=== PATIENT | male | born 2000 | race African-American/Black ===

== ENCOUNTER 2024-01-30 03:00 | Emergency (ER) | payer OTHER ==
[~2024-01-30] VITALS: Ht 185.4 cm; Wt 94.2 kg
[2024-01-30] MEDS: NS 1,000 ML IV ONE (03:19)
[2024-01-30 03:39] VITALS: TEMP 98.4
[2024-01-30] MEDS: UNRESOLVED CLARIFICATION ENTRY XX STA (03:39)
[2024-01-30 03:42] LABS: BASO % 0.3 % (0.0-1.0); EOS # 0.1 10^3/uL (0.0-0.5); EOS % 0.7 % (0.0-3.0); HEMATOCRIT 45.1 % (42.0-52.0); HEMOGLOBIN 15.2 g/dl (13.5-17.5); LYMPH # 1.6 10^3/uL (1.5-5.0); LYMPH % 21.2 % (24.0-44.0); MEAN CORPUSCULAR HEMOGLOBIN 28.8 pg (27.0-33.0); MEAN CORPUSCULAR HGB CONC 33.7 g/dl (32.0-36.5); MEAN CORPUSCULAR VOLUME 85.6 fl (80.0-96.0); MONO # 0.3 10^3/uL (0.0-0.8); MONO % 4.5 % (2.0-8.0); NEUTROPHILS # 5.5 10^3/uL (1.5-8.5); NEUTROPHILS % 72.9 % (36.0-66.0); RED BLOOD COUNT 5.27 10^6/uL (4.30-6.10); WHITE BLOOD COUNT 7.6 10^3/uL (4.0-10.0)
[2024-01-30 04:04] LABS: ETHYL ALCOHOL (ETHANOL) 0.241 % (0.000-0.010)
[2024-01-30 04:06] LABS: ALBUMIN 4.1 G/DL (3.2-5.2); ALKALINE PHOSPHATASE 107 U/L (46-116); ALT/SGPT 46 U/L (7.0-40); AST/SGOT 26 U/L (<34); BILIRUBIN,DIRECT < 0.1 MG/DL (<0.4); BILIRUBIN,TOTAL 0.2 MG/DL (0.3-1.2); BLOOD UREA NITROGEN 12 MG/DL (9-23); CALCIUM LEVEL 8.9 MG/DL (8.5-10.1); CARBON DIOXIDE LEVEL 22 MMOL/L (20-31); CHLORIDE LEVEL 111 MMOL/L (98-107); CREATININE FOR GFR 0.88 MG/DL (0.70-1.30); GLOMERULAR FILTRATION RATE > 60.0 (>60); GLUCOSE, FASTING 107 MG/DL (60-100); POTASSIUM SERUM 4.2 MMOL/L (3.5-5.1); SALICYLATE LEVEL < 3.0 MG/DL (<30); SODIUM LEVEL 144 MMOL/L (136-145); TOTAL PROTEIN 7.7 G/DL (5.7-8.2)
[2024-01-30 04:10] LABS: CPK CREATINE PHOSPHOKINASE 724 U/L (46-171)
[2024-01-30 04:15] LABS: AMPHETAMINES LEVEL URINE NEGATIVE (NEGATIVE); BARBITURATES URINE NEGATIVE (NEGATIVE); BENZODIAZEPINES URINE NEGATIVE (NEGATIVE); CANNABINOIDS URINE NEGATIVE (NEGATIVE); COCAINE METABOLITE URINE NEGATIVE (NEGATIVE); METHADONE URINE NEGATIVE (NEGATIVE); OPIATES URINE NEGATIVE (NEGATIVE); PHENCYCLIDINE URINE NEGATIVE (NEGATIVE)
[2024-01-30 06:00] VITALS: O2SAT 100
[2024-01-30] MEDS: MULTIVITAMIN -ADULT INJECTION 10 ML, THIAMINE INJection 100 MG, FOLIC ACID 1 MG in NS 1... IV ONE (08:50)
[2024-01-30] MEDS ORDERED: HOME MED LIST COMPLETE! XX SCH (10:15)
[2024-01-30 13:14] VITALS: BP 136/86
== END 2024-01-30 13:20 | disposition home or self-care (01) ==
LOC: M ED 03:00
DX: F10.129 Alcohol abuse with intoxication, unspecified (principal); Z63.0 Problems in relationship with spouse or partner; F17.200 Nicotine dependence, unspecified, uncomplicated
CPT/HCPCS: 80048; 80076; 80143; 80307; 82077; 82550; 84443; 85025; 93005; 93041; 94760; 96365; 96366; 99285; J3411

== ENCOUNTER 2025-07-19 15:42 | Emergency (ER) | payer OTHER ==
[~2025-07-19] VITALS: Ht 188 cm; Wt 100.0 kg
[~2025-07-19 15:42] MED LIST: FEXO-63; HYDR-3363 PO; MELO15TA28
[2025-07-19 16:43] LABS: PLATELET COUNT, AUTOMATED 224 10^3/uL (150-450)
[2025-07-19 17:07] LABS: ETHYL ALCOHOL (ETHANOL) 0.003 % (0.000-0.010)
[2025-07-19 17:09] LABS: ALT/SGPT 33 U/L (7.0-40); AST/SGOT 27 U/L (<34); CALCIUM LEVEL 9.1 MG/DL (8.5-10.1); CARBON DIOXIDE LEVEL 27 MMOL/L (20-31); CHLORIDE LEVEL 105 MMOL/L (98-107); CREATININE FOR GFR 0.98 MG/DL (0.70-1.30); GLOMERULAR FILTRATION RATE > 90.0 (>60); POTASSIUM SERUM 3.4 MMOL/L (3.5-5.1); SALICYLATE LEVEL < 3.0 MG/DL (<30); SODIUM LEVEL 142 MMOL/L (136-145)
[2025-07-19] MEDS: POTASSIUM CHLORIDE 10MEQ SR TABLET PO ONE (17:45)
[2025-07-19 18:21] LABS: AMPHETAMINES LEVEL URINE NEGATIVE (NEGATIVE); BARBITURATES URINE NEGATIVE (NEGATIVE); BENZODIAZEPINES URINE NEGATIVE (NEGATIVE); CANNABINOIDS URINE NEGATIVE (NEGATIVE); COCAINE METABOLITE URINE NEGATIVE (NEGATIVE); METHADONE URINE NEGATIVE (NEGATIVE); OPIATES URINE NEGATIVE (NEGATIVE); PHENCYCLIDINE URINE NEGATIVE (NEGATIVE)
[2025-07-19 19:31] VITALS: BP 124/79; TEMP 97.9; O2SAT 100
== END 2025-07-19 19:33 | disposition home or self-care (01) ==
LOC: M ED 15:42
DX: F32.A Depression, unspecified (principal); F41.9 Anxiety disorder, unspecified; F17.290 Nicotine dependence, other tobacco product, uncomplicated